=== PATIENT | female | born 1960 | race Caucasian/White ===

== ENCOUNTER → 2022-10-19 15:42 | Outpatient (CLI) | payer BC, SELFPAY ==
--- NOTE | ~2022-10-19 | XR_ITS ---
Lumbosacral Spine: AP and lateral views Clinical History: Pain Findings: The normal lordotic curve is maintained. No fracture identified. 10 mm anterolisthesis of L 4 over L5 is present. There is moderate degenerative disc narrowing at L1-L2, L3-L4, L4 over L5. Ther e is moderate facet arthropathy from L3 through S1. The sacroiliac joints are normally outlined. Impression: 10 mm anterolisthesis of L4 over L5. [id number] degenerative spondylosis, as above. Reviewed, dictated and finalized at location M. Impression: 10 mm anterolisthesis of L4 over L5. [id number] degenerative spondylosis, as above.
== END ==
PROVIDERS: PCP Nurse Practitioner Family; Visit Provider Nurse Practitioner Family
DX: M54.32 Sciatica, left side (principal); M47.896 Other spondylosis, lumbar region
CPT/HCPCS: 72100